=== PATIENT | female | born 1945 | race Caucasian/White ===

== ENCOUNTER → 2016-10-04 | Day surgery (SDC) | payer MEDICARE ==
[~2016-10-04] MED LIST: ASPIRIN EC81 MG PO; BACLOFEN10 MG PO; COUMADIN5 MG PO; COZAAR25 MG PO; LASIX20 MG PO; LIPITOR40 MG PO; METOPROLOL TART25 MG PO; NEURONTIN600 MG PO; PREDNISONE10 MG PO; PROTONIX40 MG PO; SPIRIVA18 MCG INH; SYMBICORT 16010.2 GM INH; ZYLOPRIM100 MG PO
== END | disposition home or self-care (01) ==
LOC: SDCH 09:51
DX: K29.50 Unspecified chronic gastritis without bleeding (principal); K57.30 Diverticulosis of large intestine without perforation or abscess without bleeding; I10 Essential (primary) hypertension; J44.9 Chronic obstructive pulmonary disease, unspecified; G47.33 Obstructive sleep apnea (adult) (pediatric); I25.2 Old myocardial infarction; I25.10 Atherosclerotic heart disease of native coronary artery without angina pectoris; E78.00 Pure hypercholesterolemia, unspecified; K21.9 Gastro-esophageal reflux disease without esophagitis; K59.00 Constipation, unspecified; M19.90 Unspecified osteoarthritis, unspecified site; M10.9 Gout, unspecified; G89.29 Other chronic pain; M54.9 Dorsalgia, unspecified; Z86.73 Personal history of transient ischemic attack (TIA), and cerebral infarction without residual deficits; Z79.899 Other long term (current) drug therapy; Z90.49 Acquired absence of other specified parts of digestive tract; Z90.710 Acquired absence of both cervix and uterus; Z98.890 Other specified postprocedural states; Z99.89 Dependence on other enabling machines and devices
CPT/HCPCS: J1610; J2704